=== PATIENT | female | born 1985 ===

== ENCOUNTER 2020-05-03 09:40 | Outpatient (CLI) | payer OTHER ==
[2020-05-04 12:11] LABS: SARS-CoV-2 MS2 Positive; SARS-CoV-2 N Gene Negative; SARS-CoV-2 S Gene Negative; SARS-CoV-2 by NAA Not Detected (NotDetected); SARS-CoV-2 orf1ab Negative
== END 2020-05-03 09:41 | disposition home or self-care (01) ==
LOC: LABBT 09:40
PROVIDERS: ATTEND Obstetrics & Gynecology
DX: Z20.828 Contact with and (suspected) exposure to other viral communicable diseases (principal)
CPT/HCPCS: 87635; U0003

== ENCOUNTER 2020-05-06 05:30 | Inpatient (IN) | payer OTHER ==
[2020-05-06] MEDS ORDERED: Lactated Ringer's 1,000 ML IV SCH (06:01)
[2020-05-06] MEDS ORDERED: Ondansetron PF 4 MG/2 ML Vial IVP PRN ×3 (06:01→11:49)
[2020-05-06] MEDS ORDERED: Promethazine HCl 25 MG/ML VIAL IM PRN ×2 (06:01→08:44)
[2020-05-06] MEDS ORDERED: CEFAZOLIN 2 GM in Premix Bag 1 BAG IVPB SCH (06:01)
[2020-05-06] MEDS ORDERED: hydrALAZINE 20 MG/ML VIAL SLOW IVP PRN ×2 (06:01→11:49)
[2020-05-06 06:18] LABS: Hemoglobin 13.7 g/dL (12.0-16.0); Mean Corpuscular HGB CONC 33.5 g/dL (32.0-36.0); Mean Corpuscular Hemoglobin 30.2 pg (27.0-31.0); Mean Platelet Volume 9.1 fL (7.4-10.4); Platelet Count 212 thou/uL (130-400); RBC Distribution Width 13.1 % (11.5-14.5); Red Blood Cell (RBC) Count 4.54 mill/uL (4.20-5.40); White Blood Cell (WBC) Count 8.6 thou/uL (4.8-10.8)
[2020-05-06 06:27] VITALS: BMI 38.4
[2020-05-06] MEDS ORDERED: PHENYLEPHRINE-NS 100 MCG/ML 10 ML SYRINGE ONE (06:52)
[2020-05-06] MEDS ORDERED: Ondansetron PF 4 MG/2 ML Vial ONE (06:52)
[2020-05-06] MEDS ORDERED: ePHEDrine 50 MG/ML VIAL ONE (06:52)
[2020-05-06] MEDS ORDERED: Oxytocin 10 UNITS/ML VIAL ONE (06:52)
[2020-05-06] MEDS ORDERED: Morphine PF 10 MG/10 ML VIAL ONE (06:53)
[2020-05-06] MEDS ORDERED: Sodium Chloride 0.9% 10 ML ONE ×2 (06:53→23:27)
[2020-05-06] MEDS ORDERED: Fentanyl 100 MCG/2 ML VIAL ONE (06:53)
[2020-05-06 06:55] LABS: HBSAg Index 0.14 S/CO (0-0.99); Hep B Surf Ag Non-Reactive S/CO (NonReactive); Syphilis Antibody Nonreactive (Nonreactive); Syphilis Antibody Index 0.03 S/CO (<1.00 Non-Reactive)
[2020-05-06] MEDS ORDERED: Ketorolac Tromethamine 30 MG/ML VIAL ONE (07:00)
[2020-05-06] MEDS ORDERED: Bicitra 30 ML UDCUP ONE (07:02)
[2020-05-06] MEDS ORDERED: Naloxone HCl 0.4 mg/ml Vial IVP PRN ×2 (08:44)
[2020-05-06] MEDS ORDERED: Promethazine HCl 25 MG SUPP PR PRN (08:44)
[2020-05-06] MEDS ORDERED: Naloxone HCl 0.4 mg/ml Vial IV PRN (08:44)
[2020-05-06] MEDS ORDERED: diphenhydrAMINE 50 MG/ML VIAL IVP PRN (08:44)
[2020-05-06] MEDS ORDERED: Communication Order-Pharmacy FS SCH (08:45)
--- NOTE | 2020-05-06 09:36 | OP ---
DATE OF PROCEDURE: 05/06/2020 PREOPERATIVE DIAGNOSES: 1. G2, P1-0-0-1 at 39 weeks. 2. Gestational diabetes, controlled with medications. 3. Suspected macrosomia. POSTOPERATIVE DIAGNOSES: 1. G2, P1-0-0-1 at 39 weeks. 2. Gestational diabetes, controlled with medications. 3. Suspected macrosomia. PROCEDURE PERFORMED: Primary low-transverse section. DENTAL SCHEDULING COORDINATOR: Gisel Willams MD ANESTHESIA: Spinal. COMPLICATIONS: None. ESTIMATED BLOOD LOSS: 400 mL. OPERATIVE FINDINGS: 1. Low-transverse hysterotomy without extension. 2. Vigorous male infant, Apgars 9 and 9, weight 10 pounds, to nursery. 3. Normal-appearing fallopian tubes and ovaries bilaterally. 4. Suspect anterior uterine fibroid on examination of the uterus, approximately 3 to 4 cm in size. 5. Surgical sites hemostatic. PROCEDURE IN DETAIL: The patient was taken back to the OR with IV fluids running. Once she was in the OR, spinal anesthesia was obtained. The patient was then placed in dorsal supine position with a left lateral tilt. A Jenkins catheter was placed using sterile technique and the abdomen was prepped and draped in normal fashion for section. Surgeons were gowned and gloved. Anesthesia was tested and found to be adequate. A Pfannenstiel skin incision was made with the scalpel. The skin incision was carried down through the subcutaneous tissue to the fascia. When the fascia was reached, it was incised in the midline and extended superolaterally using Gallego scissors. Naomy clamps were placed at the superior border of the fascia, which was bluntly dissected off the rectus abdominis muscles. In similar fashion, the Naomy clamps were placed at the inferior border of the fascia, which was dissected down towards the pubic symphysis. The peritoneum was bluntly entered in the midline and stretched. An Jose Eduardo O retractor was placed into the peritoneal cavity for retraction, visualization, and protection of the wound. A bladder flap was created using the scalpel and the bladder was gently pushed away from the planned hysterotomy site. A low-transverse hysterotomy was made with a scalpel. The hysterotomy was stretched using the Bearden maneuver. An amniotomy was performed with clear fluid noted. The infant was delivered from vertex presentation through the hysterotomy without difficulty. The nose and mouth were suctioned. The cord was doubly clamped and cut and the was handed off to special care nurses in attendance. Cord blood was collected. The placenta was delivered. The uterus was exteriorized, massaged to firm and cleared of clot and debris with a clean sponge. The anterior aspect of the uterus was noted to have an area of hypertrophy versus suspected uterine fibroid, approximately 3 to 4 cm, within the anterior aspect of the uterus. The uterus was returned to the abdominal cavity. The hysterotomy was inspected with no extension noted. The hysterotomy was reapproximated with Monocryl suture in a running locked fashion. After the hysterotomy was closed, it was inspected with no areas of bleeding noted. The hysterotomy and paracolic gutters were irrigated and suctioned dry. The hysterotomy was inspected again with no areas of bleeding noted. The Jose Eduardo O retractor was removed from the abdominal cavity. The rectus muscle and fascia were inspected and any small areas of bleeding were controlled with Bovie cauterization. The rectus fascia was reapproximated with PDS suture from corner to corner and tied together in the midline. The subcutaneous layer was irrigated and dried. Any small areas of bleeding were controlled with Bovie cauterization. The subcutaneous layer was reapproximated with plain gut suture. The subcuticular layer was closed with 4-0 Monocryl and a BETH dressing was applied for protection of the wound. The uterus was massaged and noted to be firm at the end of the case. The patient tolerated the procedure well. Job ID: [id number]
[2020-05-06] MEDS ORDERED: NS / Oxytocin 40 units/1000ml 1,000 ML ONE (11:25)
[2020-05-06] MEDS ORDERED: Lanolin Ointment 7 GM TUBE TOP PRN (11:49)
[2020-05-06] MEDS ORDERED: diphenhydrAMINE 25 MG CAP PO PRN (11:49)
[2020-05-06] MEDS ORDERED: Bisacodyl 10 MG SUPP PR PRN (11:49)
[2020-05-06] MEDS ORDERED: Simethicone Chewable 80 MG TAB PO PRN (11:49)
[2020-05-06] MEDS ORDERED: Zolpidem Tartrate 5 MG TAB PO PRN (11:49)
[2020-05-06] MEDS ORDERED: NS / Oxytocin 40 units/1000ml 1,000 ML IV SCH (11:49)
[2020-05-06] MEDS ORDERED: Adacel (T-DAP) 0.5 ML SYRINGE IM ONE (11:49)
[2020-05-06] MEDS ORDERED: Ferrous Sulfate 325 MG TAB PO SCH (13:00)
[2020-05-06] MEDS ORDERED: Prenatal Vitamin 1 TAB PO SCH (13:00)
[2020-05-06] MEDS ORDERED: Docusate Calcium (SURFAK) 240 MG CAP PO SCH (13:00)
[2020-05-06] MEDS: Ferrous Sulfate 325 MG TAB PO SCH (16:47)
[2020-05-06] MEDS ORDERED: HYDROcodone/Acetaminophen 5/325 mg Tablet PO PRN (20:45)
[2020-05-06] MEDS: Docusate Calcium (SURFAK) 240 MG CAP PO SCH (23:26)
[2020-05-06] MEDS: Ketorolac Tromethamine 30 MG/ML VIAL IVP PRN (23:26)
[2020-05-07] MEDS: Ketorolac Tromethamine 30 MG/ML VIAL IVP PRN (05:17)
[2020-05-07 06:27] LABS: Hemoglobin 11.7 g/dL (12.0-16.0); Mean Corpuscular HGB CONC 33.9 g/dL (32.0-36.0); Mean Corpuscular Hemoglobin 31.4 pg (27.0-31.0); Mean Corpuscular Volume 92.5 fL (78.0-98.0); Platelet Count 164 thou/uL (130-400); RBC Distribution Width 13.1 % (11.5-14.5); Red Blood Cell (RBC) Count 3.71 mill/uL (4.20-5.40); White Blood Cell (WBC) Count 11.2 thou/uL (4.8-10.8)
[2020-05-07 06:39] LABS: Glucose 100 mg/dL (70-105)
[2020-05-07] MEDS ORDERED: Sodium Chloride 0.9% 10 ML ONE (07:11)
--- NOTE | 2020-05-07 08:47 | PDOC.PP ---
Post Progress Note Post Day #: 1 Subjective: doing great, minimal discomfort, tolerating regular diet, ambulating to RR PO intake tolerated: yes Flatus: yes Ambulation: yes Vital Signs (12 hours) Temp Pulse Resp BP Pulse Ox 05/07/20 08:12 98.0 F 76 20 124/63 96 05/07/20 05:00 98.4 F 84 15 118/65 05/07/20 00:15 98.8 F 75 14 112/56 L Weight Weight 260 lb - Physical Examination General: NAD Respiratory: non-labored breathing Abdominal: no distention Fundus firm & at: below umb Skin: CS incision dry & intact (BETH dressing CDI) Neurological: no gross focal deficits Psychiatric: A&Ox3, normal affect Result Diagrams: 05/07/20 06:01 05/07/20 06:01 Additional Labs: Post Labs Hep Bs Antigen Non-Reactive S/CO (NonReactive) 05/06/20 06:06 Blood Type O POSITIVE 05/06/20 06:26 (1) 39 weeks gestation of Code(s): Z3A.39 - 39 WEEKS GESTATION OF Status: Acute (2) macrosomia Code(s): O36.60X0 - MATERNAL CARE FOR EXCESS GROWTH, UNSP TRIMESTER, UNSP Status: Acute (3) delivery delivered Code(s): O82 - ENCOUNTER FOR DELIVERY WITHOUT INDICATION Status: Acute (4) GDM, class A2 Code(s): O24.419 - GESTATIONAL DIABETES MELLITUS IN , UNSP CONTROL Status: Acute - Assessment/Plan POD1 sp scheduled 1CS for GDMA2 and suspected macrosomia. Likely DC tomorrow. A1C in 3 months.
[2020-05-07] MEDS: Prenatal Vitamin 1 TAB PO SCH (09:10)
[2020-05-07] MEDS: Docusate Calcium (SURFAK) 240 MG CAP PO SCH ×2 (09:11→21:31)
[2020-05-07] MEDS: Ferrous Sulfate 325 MG TAB PO SCH ×2 (10:11→18:52)
[2020-05-07] MEDS: HYDROcodone/Acetaminophen 5/325 mg Tablet PO PRN ×2 (12:04→20:19)
[2020-05-07] MEDS ORDERED: Ibuprofen 800 MG TAB PO SCH (14:45)
[2020-05-07] MEDS: Ibuprofen 800 MG TAB PO SCH (21:31)
[2020-05-08] MEDS: HYDROcodone/Acetaminophen 5/325 mg Tablet PO PRN (00:58)
[2020-05-08] MEDS: Ibuprofen 800 MG TAB PO SCH (06:22)
[2020-05-08] MEDS: Ferrous Sulfate 325 MG TAB PO SCH (08:25)
[2020-05-08] MEDS: Docusate Calcium (SURFAK) 240 MG CAP PO SCH (09:23)
[2020-05-08] MEDS: Prenatal Vitamin 1 TAB PO SCH (09:23)
[2020-05-08 10:40] VITALS: BP 129/72; TEMP 98.4
== END 2020-05-08 12:45 | disposition home or self-care (01) | DRG 788 ==
LOC: L&D 05:35 → 3SW 11:17
PROVIDERS: ADMIT Obstetrics & Gynecology; ATTEND Obstetrics & Gynecology
PROC: 10D00Z1 Extraction of Products of Conception, Low, Open Approach (ICD-10-PCS; principal; 2020-05-06)
DX: O24.425 Gestational diabetes mellitus in childbirth, controlled by oral hypoglycemic drugs (principal); O36.63X0 Maternal care for excessive fetal growth, third trimester, not applicable or unspecified; Z20.828 Contact with and (suspected) exposure to other viral communicable diseases; Z3A.39 39 weeks gestation of pregnancy; Z37.0 Single live birth
CPT/HCPCS: 36415; 36416; 51702; 82947; 85027; 86780; 86850; 86900; 86901; 87340; J0690; J1885; J2270; J2310; J2405; J3010; J3490